=== PATIENT | female | born 1960 | race Caucasian/White ===

== ENCOUNTER 2016-12-19 09:28 | Emergency (ER) | payer MEDICARE ==
[~2016-12-19] VITALS: Ht 162.6 cm; Wt 56.7 kg
--- NOTE | ~2016-12-19 | CR173 ---
[facility] A Service of [facility] RADIOLOGY TEXT RESULTS PATIENT: JAGJIT SAM LOCATION: CFTX : 56 UNIT #: [id number] AGE: [address]: Annika Chi APRN SEX: F ORDER DR: [id number] [facility] [address] [place], [place] [address] [id number] E MR#: [id number] Acc #: [id number] NAME: JAGJIT SAM : 1960 SEX: F STUDY DATE/TIME: 12/19/2016 10:41 UNIT: CFTX ROOM: STUDY DESCRIPTION: CR Knee 3 Views Rt Attending Physician: Annika Chi A.P.R.N. Ordering Physician: [facility] Primary Care Physician: Jay Spicer M.D. MEDICAL IMAGING REPORT This report is preliminary unless electronic signature is present EXAM Right knee HISTORY Puncture wound inferior to the patella earlier today. TECHNIQUE Three views of the knee were obtained. FINDINGS Three views of the knee show moderate patellofemoral joint arthrosis, especially involving the medial aspect of the patellofemoral joint. The medial and lateral compartments are unremarkable. No radiodense foreign bodies are seen. IMPRESSION No foreign body noted. Patellofemoral joint arthrosis is seen. Dictated by... Zoltan Mansfield M.D. THIS IS AN ELECTRONICALLY VERIFIED REPORT Zoltan Mansfield M.D. at 12/22/2016 7:22 AM RLF/pcl TD: 12/20/2016 14:39 JOB #: [id number] MEDICAL IMAGING REPORT Page 1 of 1 COPY
== END 2016-12-19 12:00 | disposition home or self-care (01) ==
LOC: CED 09:28 → CFTX 09:28
DX: S81.031A Puncture wound without foreign body, right knee, initial encounter (principal); L03.115 Cellulitis of right lower limb; W26.9XXA Contact with unspecified sharp object(s), initial encounter; Y92.9 Unspecified place or not applicable; Z23 Encounter for immunization; Z88.0 Allergy status to penicillin; Z88.5 Allergy status to narcotic agent; F17.200 Nicotine dependence, unspecified, uncomplicated; Z85.118 Personal history of other malignant neoplasm of bronchus and lung
CPT/HCPCS: 73562; 90471; 90715; 99283